=== PATIENT | male | born 1995 | race Hispanic/Latino ===

== ENCOUNTER 2017-03-21 23:02 | Emergency (ER) | payer MEDICAID, OTHER ==
[~2017-03-21] VITALS: Ht 162.6 cm; Wt 54.5 kg
[2017-03-22] MEDS ORDERED: methylPREDNISolone INJ 125 MG/2 ML VIAL (J2930) IV ONE (00:30)
[2017-03-22] MEDS: IPRATROPIUM 0.5MG/ALBUTEROL 2.5MG INH SOL UD 3ML (DUONEB)(J7620) NEB PRN ×2 (01:16→01:26)
[2017-03-22] MEDS ORDERED: PRED20TA PO (02:32)
[2017-03-22 02:41] VITALS: BP 116/79
[2017-03-22] MEDS ORDERED: ALBUTEROL 90 MCG/ACT 8GM HFA INHALER INH ONE (02:45)
--- NOTE | 2017-03-22 08:01 | REP ---
PA and lateral chest: The lung locke are clear. The cardiac size is normal The ambrose, mediastinum, and bony thorax are unremarkable. Impression: Negative PA and lateral chest. Signed by Edmar Lopez MD 03/22/2017 07:53 A
== END 2017-03-22 02:43 | disposition home or self-care (01) ==
LOC: M ED 23:02
DX: J45.901 Unspecified asthma with (acute) exacerbation (principal)
CPT/HCPCS: 71020; 94640; 94760; 96374; 99284; J2930